=== PATIENT | female | born 1965 | race Caucasian/White ===

== ENCOUNTER 2021-02-06 09:38 | Emergency (ER) | payer OTHER ==
[~2021-02-06] VITALS: Ht 160 cm; Wt 58.1 kg
[2021-02-06 10:02] VITALS: BP 128/96
--- NOTE | 2021-02-06 10:02 | NUR ---
Dr. Ashraf is evaluating patient in triage room.
[2021-02-06] MEDS ORDERED: METOCLOPRAMIDE 10 MG TAB PO ONE (10:05)
[2021-02-06] MEDS ORDERED: ONDANSETRON 4 MG ODT PO ONE (10:05)
[2021-02-06] MEDS ORDERED: ONDA4TAB PO (10:07)
[2021-02-06] MEDS ORDERED: METO-486 PO (10:07)
--- NOTE | 2021-02-06 10:13 | NUR ---
PT TAKEN TO BED 12.
--- NOTE | 2021-02-06 10:26 | NUR ---
CALLED PATIENT FOR DISCHARGE NO ANSWER IN LOBBY.
--- NOTE | 2021-02-06 10:29 | NUR ---
Patient discharged with v/s stable. Written and verbal after care instructions given and explained. Patient alert, oriented and verbalized understanding of instructions. Ambulatory with steady gait. All questions addressed prior to discharge. ID band removed. Patient advised to follow up with PMD. Rx of Reglan and Zofran sent to patient's preferred pharmacy. Patient educated on indication of medication including possible reaction and side effects. Opportunity to ask questions provided and answered. Pt instructed to avoid contact with anyone until receiving negative covid result.
== END 2021-02-06 10:02 | disposition home or self-care (01) ==
LOC: MED 09:38
DX: R11.2 Nausea with vomiting, unspecified (principal); Z20.822 Contact with and (suspected) exposure to COVID-19; F17.200 Nicotine dependence, unspecified, uncomplicated
CPT/HCPCS: 99283; J8597; Q0162; U0003

== ENCOUNTER 2021-07-07 07:51 | Emergency (ER) | payer OTHER ==
[~2021-07-07] VITALS: Ht 160 cm; Wt 59.0 kg
[~2021-07-07 07:51] MED LIST: METO-486 PO; ONDA4TAB PO
[2021-07-07 07:57] VITALS: BP 118/83
[2021-07-07] MEDS ORDERED: NACL 0.9% 500 ML IV ONE (08:05)
[2021-07-07] MEDS ORDERED: ACETAMINOPHEN 325 MG TAB PO ONE (08:05)
--- NOTE | 2021-07-07 08:09 | NUR ---
PATIENT AMBULATED WITH STEADY GAIT TO BED 1.
[2021-07-07 08:25] LABS: BASOPHILS # (AUTO) 0.1 K/uL (0.00-0.22); BASOPHILS % (AUTO) 0.5 % (0.0-2.0); HEMATOCRIT 37.2 % (36-48); HEMOGLOBIN 12.6 g/dL (12.0-16.0); LYMPHOCYTES # (AUTO) 0.6 K/uL (2.5-16.5); LYMPHOCYTES % (AUTO) 4.1 % (20.5-51.1); MEAN CORPUSCULAR HEMOGLOBIN 31 pg (27-31); MEAN CORPUSCULAR HGB CONC 34 g/dL (33-37); MEAN CORPUSCULAR VOLUME 90.9 fL (80-94); MONOCYTES # (AUTO) 0.5 K/uL (0.8-1.0); MONOCYTES % (AUTO) 3.4 % (1.7-9.3); NEUTROPHILS # (AUTO) 12.6 K/uL (1.8-7.7); PLATELET COUNT (AUTO) 216 K/uL (140-450); RED BLOOD CELL COUNT(AUTO) 4.09 MIL/uL (4.20-5.40); WHITE BLOOD COUNT (AUTO) 13.7 K/uL (4.8-10.8)
[2021-07-07] MEDS ORDERED: ACETAMINOPHEN EXTRA STRENGTH 500 MG TAB PO ONE (08:30)
[2021-07-07 08:40] LABS: ALBUMIN 3.4 g/dL (3.4-5.0); ANION GAP 14.9 (8-16); CARBON DIOXIDE 26.5 mmol/L (21-32); POTASSIUM 3.4 mmol/L (3.5-5.1); TOTAL BILIRUBIN 0.7 mg/dL (0.0-1.0)
--- NOTE | 2021-07-07 09:04 | NUR ---
56/F BIB SELF WITH C/O SORE THROAT, BODY ACHES AND COUGH X2 DAYS. REPORTS TAKING COUGH MEDICINE WITH NO RELIEF. DENIES SOB, CP. lung sounds wheezing. Pain on right side of body radiating to right arm and back. reports 8/10 pain soreness. MEDHX: DENIES ALLERGIES: DENIES
[2021-07-07] MEDS ORDERED: DEXAMETHASONE 4 MG/ML VIAL IVP ONE (09:40)
--- NOTE | 2021-07-07 09:46 | NUR ---
PT REQUESTING FOR DARWINO, PER DR LAKIA RODRIGUEZ TO GIVE. SUSAN PROVIDED.
[2021-07-07] MEDS ORDERED: DEC4 PO (10:58)
--- NOTE | 2021-07-07 11:41 | NUR ---
Patient discharged with v/s stable. Written and verbal after care instructions given and explained. Patient alert, oriented and verbalized understanding of instructions. Ambulatory with steady gait. All questions addressed prior to discharge. ID band removed. Patient advised to follow up with PMD. Rx of Decadron given. Patient educated on indication of medication including possible reaction and side effects. Opportunity to ask questions provided and answered.
[2021-07-07 11:43] VITALS: BP 118/83
== END 2021-07-07 11:41 | disposition home or self-care (01) ==
LOC: MED 07:51
DX: U07.1 COVID-19 (principal)
CPT/HCPCS: 71045; 80053; 85025; 86140; 87426; 87804; 93005; 96361; 96374; 99285; J1100; J7030; Q0092

== ENCOUNTER 2022-06-05 23:21 | Emergency (ER) | payer OTHER ==
[~2022-06-05] VITALS: Ht 160 cm; Wt 55.8 kg
[~2022-06-05 23:21] MED LIST changes: +DEC4 PO
[2022-06-05 23:36] VITALS: BP 100/69
--- NOTE | 2022-06-06 00:46 | NUR ---
Dr. Watts examining patient.
[2022-06-06 02:17] LABS: BASOPHILS # (AUTO) 0.1 K/uL (0.00-0.22); BASOPHILS % (AUTO) 1.1 % (0.0-2.0); EOSINOPHILS # (AUTO) 0.1 K/uL (0-0.4); EOSINOPHILS % (AUTO) 1.8 % (0.0-4.0); HEMATOCRIT 39.8 % (36-48); HEMOGLOBIN 13.4 g/dL (12.0-16.0); LYMPHOCYTES # (AUTO) 2.6 K/uL (2.5-16.5); LYMPHOCYTES % (AUTO) 39.8 % (20.5-51.1); MEAN CORPUSCULAR HEMOGLOBIN 31 pg (27-31); MEAN CORPUSCULAR HGB CONC 34 g/dL (33-37); MEAN CORPUSCULAR VOLUME 91.8 fL (80-94); MONOCYTES # (AUTO) 0.5 K/uL (0.8-1.0); MONOCYTES % (AUTO) 7.1 % (1.7-9.3); NEUTROPHILS # (AUTO) 3.3 K/uL (1.8-7.7); NEUTROPHILS % (AUTO) 50.2 % (42.2-75.2); PLATELET COUNT (AUTO) 255 K/uL (140-450); RED BLOOD CELL COUNT(AUTO) 4.34 MIL/uL (4.20-5.40); RED CELL DISTRIBUTION WIDTH 13.1 % (11.6-13.7); WHITE BLOOD COUNT (AUTO) 6.6 K/uL (4.8-10.8)
--- NOTE | 2022-06-06 02:21 | NUR ---
PT RETURN FROM RADIOLOGY
[2022-06-06 02:39] LABS: APPEARANCE,URINE CLEAR (CLEAR); BILIRUBIN,URINE NEGATIVE (NEGATIVE); BLOOD, URINE NEGATIVE (NEGATIVE); COLOR,URINE YELLOW (YELLOW); LEUKOCYTE ESTERASE ,URINE 2+ (NEGATIVE); NITRITE, URINE NEGATIVE (NEGATIVE); UGLUCOSE NEGATIVE (NEGATIVE)
[2022-06-06 03:00] LABS: RBC,URINE 0-5 /HPF (0-5)
[2022-06-06 03:51] LABS: ALBUMIN 3.8 g/dL (3.4-5.0); ANION GAP 13.5 (8-16); ASPARTATE AMINOTRANSFERASE 19 U/L (15-37); CARBON DIOXIDE 29.2 mmol/L (21-32); CHLORIDE 103 mmol/L (98-107); CREATININE 0.8 mg/dL (0.6-1.3); GFR ARICAN-AMERICAN 94 mL/min (>90); GLUCOSE 96 mg/dL (74-106); POTASSIUM 3.7 mmol/L (3.5-5.1); SODIUM SERUM 142 mmol/L (136-145); TOTAL BILIRUBIN 0.2 mg/dL (0.0-1.0); UREA NITROGEN, BLOOD 17 mg/dL (7-18)
--- NOTE | 2022-06-06 04:38 | NUR ---
Dr. Watts explained results and treatment plans.
[2022-06-06 04:42] VITALS: BP 105/69
--- NOTE | 2022-06-06 04:42 | NUR ---
Patient discharged with v/s stable. Written and verbal after care instructions given and explained. Patient verbalized understanding. Ambulatory with steady gait. All questions addressed prior to discharge. Advised to follow up with PMD.
[2022-06-06] MEDS ORDERED: CEPH-588 PO (04:58)
== END 2022-06-06 04:42 | disposition home or self-care (01) ==
LOC: MED 23:21
DX: R41.3 Other amnesia (principal)
CPT/HCPCS: 36415; 70450; 71045; 80053; 81001; 84484; 85025; 87086; 93005; 99285; Q0092